=== PATIENT | male | born 1970 | race Caucasian/White ===

== ENCOUNTER 2019-01-26 10:42 | Emergency (ER) | payer OTHER ==
[2019-01-26] MEDS ORDERED: Diphtheria,Pertussis(Acell),Tetanus Vaccine 0.5 ML SDV IM ONE (11:10)
[2019-01-26] MEDS ORDERED: Lidocaine 1% with EPINEPHrine 1:100,000 50 ML MDV SUBCUT STA (11:10)
[2019-01-26] MEDS ORDERED: Bacitracin Oint 1 GM U/D Packet TOP ONE (11:10)
--- NOTE | 2019-01-26 11:16 | EDM.PDOC ---
ED HPI GENERAL MEDICAL PROBLEM - General Chief Complaint: Laceration Stated Complaint: DIZZY AND PASSED OUT/HIT HEAD Time Seen by Provider: 01/26/19 11:09 Source of Information: Reports: Patient, Family, RN Notes Reviewed History Limitations: Reports: No Limitations - History of Present Illness INITIAL COMMENTS - FREE TEXT/NARRATIVE: 48-year-old gentleman presents emergency department today with laceration above his right eyebrow he states he was seated for maybe 10 minutes stood up suddenly felt dizzy fell to the ground he does not feel he fully passed out he' s not sure what he hit maybe a bench but now he has laceration above his eye is controlled he has no other complaints at this time, new event for him - Related Data Allergies Allergy/AdvReac Type Severity Reaction Status Date / Time No Known Allergies Allergy Verified 01/26/19 10:59 Home Meds: Home Meds Aspirin 1 tab PO DAILY 01/26/19 [History] Atenolol 1 tab PO BID 01/26/19 [History] Past Medical History Musculoskeletal History: Reports: Back Pain, Chronic - Past Surgical History HEENT Surgical History: Reports: Tonsillectomy Social & Family History - Tobacco Use Smoking Status *Q: Never Smoker ED ROS GENERAL - Review of Systems Review Of Systems: See Below Respiratory: Reports: No Symptoms Cardiovascular: Reports: Syncope GI/Abdominal: Reports: No Symptoms Skin: Reports: Wound ED EXAM, SKIN/RASH Exam: See Below Text/Narrative:: Examination of the integument system he does have a 4 cm laceration that is above the right eyebrow it is completely through the dermis into the subcutaneous tissue bleeding is controlled Exam Limited By: No Limitations General Appearance: Alert, WD/WN, No Apparent Distress Eye Exam: Bilateral Eye: Normal Inspection Ears: Normal External Exam, Normal Canal, Hearing Grossly Normal, Normal TMs Nose: Normal Inspection, Normal Mucosa, No Blood Throat/Mouth: Normal Inspection, Normal Lips, Normal Teeth, Normal Gums, Normal Oropharynx, Normal Voice, No Airway Compromise Head: Atraumatic, Normocephalic Neck: Normal Inspection, Supple, Non-Tender, Full Range of Motion Respiratory/Chest: No Respiratory Distress, Lungs Clear, Normal Breath Sounds, No Accessory Muscle Use, Chest Non-Tender Cardiovascular: Regular Rate, Rhythm, No Murmur GI/Abdominal: Soft, Non-Tender ED SKIN PROCEDURES - Laceration/Wound Repair Face Lac/Wound length In cm: 4 Appearance: Subcutaneous, Irregular, Clean Distal NVT: Neuro & Vascular Intact, No Tendon Injury Anesthetic Type: Local Local Anesthesia - Lidocaine (Xylocaine): 1% with EPI Local Anesthetic Volume: 2cc Skin Prep: Chlorhexidine (Hibiciens), Saline Saline Irrigation (cc's): 60 Exploration/Debridement/Repair: Wound Explored, In a Bloodless Field, Explored to Base Closed with: Sutures Suture Size: other (5-0) Suture Type: Nylon, Running Suture Size: 4-0 # of Sutures: 3 Repaired with: Vicryl Tetanus Status Addressed: Yes (Today) Complications: No Course - Vital Signs Last Recorded V/S: Last Vital Signs Temp 97.7 F 01/26/19 11:07 Pulse 66 01/26/19 11:07 Resp 14 01/26/19 11:07 BP 141/88 H 01/26/19 11:07 Pulse Ox 98 01/26/19 11:07 - Orders/Labs/Meds Orders: Active Orders 24 hr Category Date Time Status EKG Documentation Completion [RC] ASDIRECTED Care 01/26/19 11:10 Active Vaccines to be Administered [RC] PER UNIT ROUTINE Care 01/26/19 11:10 Active EKG 12 Lead [EK] Stat Ther 01/26/19 11:10 Ordered Meds: Medications Discontinued Medications Generic Name Dose Route Start Last Admin Trade Name Donnie PRN Reason Stop Dose Admin Bacitracin 1 dose 01/26/19 11:10 01/26/19 11:26 Bacitracin Oint 1 Gm TOP 01/26/19 11:11 1 dose ONETIME ONE Administration Diphtheria/Tetanus/Acell Pertussis 0.5 ml 01/26/19 11:10 01/26/19 11:27 Adacel IM 01/26/19 11:11 0.5 ml .ONCE ONE Administration Lidocaine/Epinephrine 20 ml 01/26/19 11:10 01/26/19 11:25 Xylocaine 1% With Epinephrine 1:100,000 SUBCUT 01/26/19 11:11 20 ml NOW STA Administration Departure - Departure Time of Disposition: 11:50 Disposition: Home, Self-Care 01 Condition: Good Clinical Impression: Laceration of right eyebrow Qualifiers: Encounter type: initial encounter Qualified Code(s): S01.111A - Laceration without foreign body of right eyelid and periocular area, initial encounter - Discharge Information Referrals: PCP,None [Primary Care Provider] - Forms: ED Department Discharge Additional Instructions: Follow wound care instruction sheet - My Orders Last 24 Hours: My Active Orders 01/26/19 11:10 EKG Documentation Completion [RC] ASDIRECTED Vaccines to be Administered [RC] PER UNIT ROUTINE EKG 12 Lead [EK] Stat - Assessment/Plan Last 24 Hours: My Active Orders 01/26/19 11:10 EKG Documentation Completion [RC] ASDIRECTED Vaccines to be Administered [RC] PER UNIT ROUTINE EKG 12 Lead [EK] Stat Plan: Assessment Acuity = acute Site and laterality = 4 cm laceration above right eyebrow with syncopal event Etiology = secondary to fall Manifestations = none] Location of injury = Home Lab values = EKG shows NSR Plan Suture removal in 3-4 days follow-up primary care return to emergency department follow wound care instruction sheet This note was dictated using [employer] voice recognition software please call with any questions on syntax or grammar.
== END 2019-01-26 12:19 | disposition home or self-care (01) ==
LOC: JP.ED 10:42
DX: S01.111A Laceration without foreign body of right eyelid and periocular area, initial encounter (principal); W19.XXXA Unspecified fall, initial encounter
CPT/HCPCS: 12013; 90471; 90715; 93005; 99283-25